=== PATIENT | female | born 1965 | race Hispanic/Latino ===

== ENCOUNTER 2019-04-21 11:27 | Emergency (ER) | payer SELFPAY ==
[~2019-04-21] VITALS: Ht 154.9 cm; Wt 69.0 kg
[~2019-04-21 11:27] MED LIST: ALLEGRA60 MG PO; IBUPROFEN400 MG PO; MULTIVITAMINS1 EAC7 PO; NORCO 5-325 TA1 EACH PO
--- NOTE | 2019-04-22 11:38 | EKG ---
[facility] [address] [facility] [place], [place] [address] Signed Normal sinus rhythm Normal ECG No previous ECGs available Confirmed by MARIO ALBERTO CORDERO DO ([id number]) on 04/22/2019 11:38:42 AM Electronically Signed By: MARIO ALBERTO CORDERO DO 04/22/19 1138 PATIENT NAME: APRIL FOX Electrocardiogram DATE OF : 67 PHYSICIAN: MARIO ALBERTO CORDERO DO REPORT #: [id number] REPORT IS CONFIDENTIAL AND NOT TO BE RELEASED WITHOUT AUTHORIZATION
== END 2019-04-21 17:30 | disposition home or self-care (01) ==
LOC: ED 11:27
DX: R07.89 Other chest pain (principal)
CPT/HCPCS: 71045; 71046; 80053; 83735; 84484; 85025; 93005; 93010; 99285-25

== ENCOUNTER 2024-08-10 09:55 | Emergency (ER) | payer OTHER ==
[~2024-08-10] VITALS: Ht 154.9 cm; Wt 61.8 kg
[2024-08-10] MEDS ORDERED: ondansetron HCL 4 MG/2 ML VIAL IV ONE (10:30)
[2024-08-10] MEDS ORDERED: SODIUM CHLORIDE 0.9% 1,000 ML IV ONE (10:30)
[2024-08-10 10:48] LABS: BASOPHILS 0.1 % (0-2); HEMATOCRIT 38.5 % (35.0-50.0); HEMOGLOBIN 13.6 g/dL (12.0-18.0); LYMPHOCYTES 5.3 % (24-44); MCH 31.4 (27-36); MCHC 35.3 g/dl (30-36); MCV 89.1 fl (81-99); MONOCYTES 6.1 % (0-12); NEUTROPHILS 88.5 % (39-80); PLATELET COUNT 272 K/uL (140-440); RBC 4.33 M/ul (4.3-5.7); RDW 13.9 (10.5-15.0)
[2024-08-10 11:03] LABS: ALBUMIN 3.8 g/dL (3.4-5.0); ALBUMIN/GLOBULIN RATIO 0.9 (1.1-2.4); ANION GAP 15.8 (7-21); BILIRUBIN, TOTAL 0.8 ng/dL (0.2-1.0); BUN/CREATININE RATIO 22.36 (6.0-28.6); CALCIUM 9.7 mg/dL (8.5-10.1); CREATININE, SERUM 0.76 mg/dL (0.55-1.02); POTASSIUM 3.8 mmol/L (3.5-5.1)
[2024-08-10] MEDS ORDERED: ONDANSETRON ODT8 MG PO (11:33)
[2024-08-10] MEDS ORDERED: HEParin SOD (PORCINE) 500 UNIT/5 ML ML IV ONE (11:45)
[2024-08-10 11:50] VITALS: BP 114/69
== END 2024-08-10 11:50 | disposition home or self-care (01) ==
LOC: ED 09:55
PROVIDERS: Emergency Medicine
DX: R10.13 Epigastric pain (principal); R19.7 Diarrhea, unspecified
CPT/HCPCS: 36415; 80053; 83690; 85025; 96374; 96375; 99284-25; J2405; J7030